=== PATIENT | female | born 1970 | race Caucasian/White ===

== ENCOUNTER 2018-09-20 15:29 | Emergency (ER) | payer OTHER ==
[~2018-09-20] VITALS: Ht 154.9 cm; Wt 63.5 kg
--- OUTSIDE RECORDS SUMMARY | ~2018-09-20 | XMS | Clinical Summary ---
Demographics + + + | Address | [address] | | | [place] [address] | + + + | Home Phone | | + + + | Preferred Language | Unknown | + + + | Marital Status | Single | + + + | Sabianism Affiliation | Unknown | + + + | Race | Unknown | + + + | Ethnic Group | Unknown | + + + Author + + + | Author | [facility] | + + + | Organization | [facility] | + + + | Address | Unknown | + + + | Phone | Unavailable | + + + Support + + +---------+ + | Name | Relationship | Address | Phone | + + +---------+ + | Wily Cardoza | ECON | Unknown | | + + +---------+ + | Contact,No | ECON | Unknown | | + + +---------+ + Care Team Providers + +------+ + | Care Coal Loader Name | Role | Phone | + +------+ + | Vangie Cabral MD | PP | | + +------+ + Allergies No Known Allergies Current Medications + + +-------+---------+------+------+-------+ | Prescription | Sig. | Disp. | Refills | Star | End | Statu | | | | | | t | Date | s | | | | | | Date | | | + + +-------+---------+------+------+-------+ | | | | 0 | 12/0 | | Activ | | HYDROcodone-acetamin | | | | 7/20 | | e | | ophen (NORCO) 5-325 | | | | 18 | | | | MG per tablet | | | | | | | + + +-------+---------+------+------+-------+ | LYRICA 75 MG | | | 0 | 12/1 | | Activ | | capsule | | | | 3/20 | | e | | | | | | 18 | | | + + +-------+---------+------+------+-------+ | buPROPion | Take 200 mg by mouth | | | | | Activ | | (WELLBUTRIN SR) 200 | 2 (two) times | | | | | e | | MG 12 hr tablet | daily. | | | | | | + + +-------+---------+------+------+-------+ | venlafaxine | Take 75 mg by mouth | | | | | Activ | | (EFFEXOR) 75 MG | 3 (three) times | | | | | e | | tablet | daily. | | | | | | + + +-------+---------+------+------+-------+ | traZODone | Take 100 mg by mouth | | | | | Activ | | (DESYREL) 100 MG | nightly. | | | | | e | | tablet | | | | | | | + + +-------+---------+------+------+-------+ | ARIPiprazole | Take 2 mg by mouth | | | | | Activ | | (ABILIFY) 2 MG | daily. | | | | | e | | tablet | | | | | | | + + +-------+---------+------+------+-------+ | metroNIDAZOLE | | | | 01/2 | | Activ | | (FLAGYL) 500 MG | | | | 4/20 | | e | | tablet | | | | 19 | | | + + +-------+---------+------+------+-------+ Active Problems No known active problems Encounters +--------+ + + + + | Date | Type | Specialty | Care Team | Description | +--------+ + + + + | 09/06/ | Telephone | | Annabelle Staley MA | | | 2018 | | | | | +--------+ + + + + | 08/12/ | Telephone | | Gerardo Gallegos, | Follow-up | | 2018 | | | MD | (Reschedule 08/15/18 | | | | | | ) | +--------+ + + + + | 07/09/ | Telephone | | Gerardo Gallegos, | Referral | 2018 | | | MD | | +--------+ + + + + | 07/02/ | Documentati | | Gerardo Gallegos, | | | 2018 | on Only | | MD | | +--------+ + + + + from Last 3 Months Family History + + +------+ + | Medical History | Relation | Name | Comments | + + +------+ + | COPD | Mother | | | + + +------+ + + +------+--------+ + | Relation | Name | Status | Comments | + +------+--------+ + | Father | | Alive | | + +------+--------+ + | Mother | | Alive | | + +------+--------+ + Social History + +-------+ +--------+------+ | Tobacco Use | Types | Packs/Day | Years | Date | | | | | Used | | + +-------+ +--------+------+ | Never Smoker | | | | | + +-------+ +--------+------+ + +---+---+---+ | Smokeless Tobacco: | | | | | Never Used | | | | + +---+---+---+ + + +---------+ + | Alcohol Use | Drinks/We | oz/Week | Comments | | | ek | | | + + +---------+ + | Yes | | | | + + +---------+ + + + + | Sex Assigned at | Date Recorded | | | | + + + | Not on file | | + + + Last Filed Vital Signs + + + + | Vital Sign | Reading | Time Taken | + + + + | Blood Pressure | 111/65 | 05/23/2018 1:00 PM PST | + + + + | Pulse | 78 | 05/23/2018 1:00 PM PST | + + + + | Temperature | - | - | + + + + | Respiratory Rate | - | - | + + + + | Oxygen Saturation | - | - | + + + + | Inhaled Oxygen | - | - | | Concentration | | | + + + + | Weight | 62.1 kg (137 lb) | 2018 2:44 PM PST | + + + + | Height | 154.9 cm (5' 1") | 2018 2:44 PM PST | + + + + | Body Mass Index | 25.89 | 2018 2:44 PM PST | + + + + Plan of Treatment + + + + + | Health Maintenance | Due Date | Last Done | Comments | + + + + + | Vaccine: | | | | | Dtap/Tdap/Td (1 - | 1 | | | | Tdap) | | | | + + + + + | Cervical Cancer | | | | | Screening (Pap) | 2 | | | + + + + + | Vaccine: Influenza | | | | | (Season Ended) | 9 | | | + + + + + Results Not on filefrom Last 3 Months Insurance + +--------+ +------+-------+ + | Payer | Benefi | Subscriber | Type | Phone | Address | | | t Plan | ID | | | | | | / | | | | | | | Group | | | | | + +--------+ +------+-------+ + | MEDICAID | [employer] | [id number] | | | [address] | | | N | | | | [place] | | | [place] | | | | [address] | | | 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
--- OUTSIDE RECORDS SUMMARY | ~2018-09-20 | XMS | Encounter Summary ---
Demographics + + + | Address | [address] | | | [place] [address] | + + + | Home Phone | | + + + | Preferred Language | Unknown | + + + | Marital Status | Single | + + + | Sikh Affiliation | Unknown | + + + | Race | Unknown | + + + | Ethnic Group | Unknown | + + + Author + + + | Author | [facility] [employer] [employer] [facility] | + + + | Organization | [facility] [facility] | + + + | Address [...] Team Providers + +------+ + | Care Production Dispatcher Name | Role | Phone | + +------+ + | Vangie Cabral MD | PCP | | + +------+ + Encounter Details +--------+ + + + + | Date | Type | Department | Care Team | Description | +--------+ + + + + | 09/06/ | Telephone | [facility] | Annabelle Staley MA | | | 2019 | | [facility] | | | | | | [address] | | | | | | [place] | | | | | | [address] | | | | | | [phone] | | | +--------+ + + + + Social History + +-------+ +--------+------+ | [...] on file | | + + + as of this encounter Plan of Treatment Not on fileas of this encounter Visit Diagnoses Not on filein this encounter"
--- OUTSIDE RECORDS SUMMARY | ~2018-09-20 | XMS | Encounter Summary ---
Demographics + + + | Address | [address] | | | [place] [address] | + + + | Home Phone | | + + + | Preferred Language | Unknown | + + + | Marital Status | Single | + + + | Jewish Affiliation | Unknown | + + + | Race | Unknown | + + + | Ethnic Group | Unknown | + + + Author + + + | Author | [facility] [facility] | + + + | Organization | [facility] | + + + | Address [...] Team Providers + +------+ + | Care Burr Bench Operator Name | Role | Phone | + +------+ + | Vangie Cabral MD | PCP | | + +------+ + Reason for Visit + + + | Reason | Comments | + + + | Referral | | + + + Encounter Details +--------+ + + + + | Date | Type | Department | Care Team | Description | +--------+ + + + + | 07/09/ | Telephone | Lane | Gerardo Gallegos, | Referral | | 2019 | | [facility] | [address] | | | | | [address] | [place], [place] | | | | | [place], [place] | [address] | | | | | [address] | | | | | | [phone] | | | +--------+ + + + [...]
--- OUTSIDE RECORDS SUMMARY | ~2018-09-20 | XMS | Encounter Summary ---
Demographics + + + | Address | [address] | | | [place] [address] | + + + | Home Phone | | + + + | Preferred Language | Unknown | + + + | Marital Status | Single | + + + | Restorationism Affiliation | Unknown | + + + | Race | Unknown | + + + | Ethnic Group | Unknown | + + + Author + + + | Author | [facility] [employer] [facility] | + + + | Organization | [facility] | + + + | Address [...] Team Providers + +------+ + | Care Metaphysician Name | Role | Phone | + +------+ + | Vangei Cabral MD | PCP | | + +------+ + Encounter Details +--------+ + + + + | Date | Type | Department | Care Team | Description | +--------+ + + + + | 09/06/ | Telephone | [facility] | Annabelle Staley MA | | | 2019 | | [facility] | | | | | | [address] | | | | | | [place] | | | | | | [address] | | | | | | [phone] | | | +--------+ + + + [...]
--- OUTSIDE RECORDS SUMMARY | ~2018-09-20 | XMS | Encounter Summary ---
Demographics + + + | Address | [address] | | | [place] [address] | + + + | Home Phone | | + + + | Preferred Language | Unknown | + + + | Marital Status | Single | + + + | Advent Affiliation | Unknown | + + + | Race | Unknown | + + + | Ethnic Group | Unknown | + + + Author + + + | Author | [facility] [employer] [facility] | + + + | Organization | [facility] | + + + | Address [...] Team Providers + +------+ + | Care Tester Armature Or Fields Name | Role | Phone | + +------+ + | Vangie Cabral MD | PCP | | + +------+ + Reason for Visit + + + | Reason | Comments | + + + | Follow-up | Reschedule 08/15/18 | + + + Encounter Details +--------+ + + + + | Date | Type | Department | Care Team | Description | +--------+ + + + + | 08/12/ | Telephone | Lane | Gerardo Gallegos, | Follow-up | | 2019 | | [facility] | [address] | (Reschedule 08/15/18 | | | | [address] | Drive [place], [place] | ) | | | | [place], [place] | [address] | | | | | [address] | | | | | | [phone] | | | +--------+ + + + [...]
--- OUTSIDE RECORDS SUMMARY | ~2018-09-20 | XMS | Encounter Summary ---
Demographics + + + | Address | [address] | | | [place] [address] | + + + | Home Phone | | + + + | Preferred Language | Unknown | + + + | Marital Status | Single | + + + | Presybeterian Affiliation | Unknown | + + + | Race | Unknown | + + + | Ethnic Group | Unknown | + + + Author + + + | Author | [facility] [employer] [facility] | + + + | Organization | [facility] [facility] | + + + | Address [...] Team Providers + +------+ + | Care Stereoptic Projection Topographer Name | Role | Phone | + +------+ + | Vangie Cabral MD | PCP | | + +------+ + Encounter Details +--------+ + + + + | Date | Type | Department | Care Team | Description | +--------+ + + + + | 07/02/ | Documentati | [facility] | Gerardo Gallegos, | | | 2019 | on Only | [facility] | MD Eleni Crane | | | | | [address] | [place] | | | | | [place] | [address] | | | | | [address] | | | | | | [phone] | | | +--------+ + + + [...]
--- OUTSIDE RECORDS SUMMARY | ~2018-09-20 | XMS | Encounter Summary ---
Demographics + + + | Address | [address] | | | [place] [address] | + + + | Home Phone [...] + + + | Author | [facility] [employer] [facility] | + + + | Organization | [facility] [employer] [facility] | + + + | Address [...] Team Providers + +------+ + | Care Salesperson Jewelry Name | Role | Phone | + [...] | | [address] | Drive [place], [place] | ) | | | | [place], [place] | [address] | | | | | [address] | | | | | | [phone] | | | +--------+ + + + [...]
--- OUTSIDE RECORDS SUMMARY | ~2018-09-20 | XMS | Clinical Summary ---
Demographics + + + | Address | [address] | | | [place] [address] | + + + | Home Phone | | + + + | Preferred Language | Unknown | + + + | Marital Status | Single | + + + | Catholic Affiliation | Unknown | + + + | Race | Unknown | + + + | Ethnic Group | Unknown | + + + Author + + + | Author | [facility] [employer] [facility] | + + + | Organization | [facility] [employer] [facility] | + + + | Address [...] Team Providers + +------+ + | Care Practice Billing Associate Name | Role | Phone | + [...] | 07/02/ | Documentati | | Gerardo Gallegso, | | | 2018 | on Only [...] +------+-------+ + | MEDICAID | [employer] | [id number] | | | [address] | | | [place] | | | | [place] | | | [place] | | | | [address] | | | 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
--- OUTSIDE RECORDS SUMMARY | ~2018-09-20 | XMS | Encounter Summary ---
Demographics + + + | Address | [address] | | | [place] [address] | + + + | Home Phone | | + + + | Preferred Language | Unknown | + + + | Marital Status | Single | + + + | Confucianism Affiliation | Unknown | + + + | Race | Unknown | + + + | Ethnic Group | Unknown | + + + Author + + + | Author | [facility] [employer] [facility] | + + + | Organization | [facility] | + + + | Address [...] Team Providers + +------+ + | Care Extruder Operator Helper Name | Role | Phone | + [...] [address] | [place] | | | | | [place] | [address] | | | | | [address] | | | | | | [phone] | | | +--------+ + + + [...]
--- OUTSIDE RECORDS SUMMARY | ~2018-09-20 | XMS | Encounter Summary ---
Demographics + + + | Address | [address] | | | [place] [address] | + + + | Home Phone | | + + + | Preferred Language | Unknown | + + + | Marital Status | Single | + + + | Pentecostalism Affiliation | Unknown | + + + | Race | Unknown | + + + | Ethnic Group | Unknown | + + + Author + + + | Author | [facility] [employer] [facility] | + + + | Organization | [facility] | + + + | Address [...] Team Providers + +------+ + | Care Journal Entry Audit Clerk Name | Role | Phone | + [...] | [address] | [place], [place] | | | | | [place], [place] | [address] | | | | | [address] | | | | | | [phone] | | | +--------+ + + + [...]
[~2018-09-20 15:29] MED LIST: FLONASE2 SPRAY NS; IBUPROFEN800 MG PO; LYRICA100 MG PO; NAPROSYN500 MG PO; ULTRAM50 MG PO; VICODIN 5-5001 EACH PO
--- OUTSIDE RECORDS SUMMARY | 2018-09-20 15:32 | XMS ---
PreManage Notification: ELIZABETH MENDEZ Security [employer] Sales Events No recent Security Events currently on file CRITERIA MET - [facility] CARE PROVIDERS KYLE MARTE Primary Care Current PHONE: Unknown [facility] Primary Care Current CARE PHONE: [phone] Jun has no Care Guidelines for this patient. [place]aja VISIT COUNT (12 MO.) 1 ZAHRA Stewart TOTAL 1 NOTE: Visits indicate total known visits. ED/UCC VISIT TRACKING (12 MO.) 09/20/2018 15:[address] [facility] [place] TYPE: Emergency COMPLAINT: - LEFT SIDE FLANK INPATIENT VISIT TRACKING (12 MO.) No inpatient visits to display in this time frame [email or web address]
[2018-09-20] MEDS ORDERED: BUPROPION XL300 MG PO (17:19)
[2018-09-20] MEDS ORDERED: FAMCICLOVIR500 MG PO (19:40)
== END 2018-09-20 19:54 | disposition home or self-care (01) ==
LOC: ED 15:29
DX: B02.9 Zoster without complications (principal); Z90.49 Acquired absence of other specified parts of digestive tract; Z79.899 Other long term (current) drug therapy
CPT/HCPCS: 76775; 81001; 99284-25

== ENCOUNTER 2025-01-30 05:47 | Day surgery (SDC) | payer OTHER ==
[2024-11-18 09:00] VITALS: BP 102/72
[2025-01-26 11:54] VITALS: BP 102/72
[~2025-01-30] VITALS: Ht 154.9 cm; Wt 58.0 kg
[~2025-01-30 05:47] MED LIST changes: +ACETAMINOPHEN325 M1 PO; +BUPROPION XL300 MG PO; +CYCLOBENZAPRINE10 MG PO; +FAMCICLOVIR500 MG PO; +GABAPENTIN800 MG PO; +IBLOOD GLUCOSE TEST STRIP 1 EA TEST VI PRN; +LACTATED RINGER'S 1,000 ML IV SCH; +LIDOCAINE HCL 1% 5 ML SDV INJ ONE; +SENNA LAX8.6 MG PO
[2025-01-30 06:04] VITALS: BP 104/71
[2025-01-30] MEDS ORDERED: HYDROCODON-ACE1 EA10 PO (06:08)
[2025-01-30] MEDS ORDERED: LIDOCAINE HCL 1% 5 ML SDV INJ ONE (07:00)
[2025-01-30] MEDS ORDERED: IBLOOD GLUCOSE TEST STRIP 1 EA TEST VI PRN (07:00)
[2025-01-30] MEDS ORDERED: LIDOCAINE HCL 2% 5 ML SDV ONE (07:10)
--- NOTE | 2025-01-30 09:03 | NUR ---
01/30/25 09 Abbi Harrison PATIENT WAKES SUDDENLY. SHE DENIES PAIN AND NAUSEA. HER QUESTIONS ARE ANSWERED.
[2025-01-30 09:15] VITALS: BP 105/70
--- NOTE | 2025-01-31 18:03 | OR ---
[facility] [address] [facility] [place], [place] [address] Signed DATE OF OPERATION: 01/30/2025 SURGEON: Raoul Gagnon DO PREOPERATIVE DIAGNOSIS: Colon cancer screening. POSTOPERATIVE DIAGNOSIS: Colon cancer screening with colon polyps at 45 cm, 65 cm and 80 cm. PROCEDURE PERFORMED: Colonoscopy with colon polyp biopsy at 45 cm, 65 cm, and 80 cm. ANESTHESIA: IV sedation. ESTIMATED BLOOD LOSS: None. DRAINS: None. COMPLICATIONS: None. DESCRIPTION OF PROCEDURE: The patient was brought to the GI lab and placed in the supine position. After induction of IV sedation, the patient was placed in left lateral position, padded to the satisfaction of anesthesia. The Olympus video colonoscope was then introduced into the rectum and while insufflating and under direct visualization, the scope was pushed through the rectosigmoid, sigmoid colon, descending colon, transverse colon, ascending colon into the cecum. The colon was insufflated and exploration of mucosal surfaces was carried out. Cecum and ascending colon had no lesions or ulcerations noted. No intrinsic or extrinsic masses were appreciated. Scope was then brought back into the transverse colon, passed the hepatic flexure. No intrinsic or extrinsic masses, lesions or ulceration noted. The scope was brought back from the splenic flexure and at approximately 80 cm, a flat broad-based polyp was identified. Multiple biopsies were taken with the broad-based polyp with the cold biopsy forceps and passed off the field for pathologic review. The scope was then brought back into the lower descending colon and at approximately 65 cm, another flat broad-based polyp was identified. Cold biopsy Electronically Signed By: RAOUL GAGNON DO 01/31/25 1803 PATIENT NAME: ELIZABETH MENDEZ OPERATIVE REPORT DATE OF : 72 REPORT #: [id number] PHYSICIAN: RAOUL GAGNON DO PCP: NARCISA CARTRE MD REPORT IS CONFIDENTIAL AND NOT TO BE RELEASED WITHOUT AUTHORIZATION [facility] [address] [place], [place] [address] Signed forceps was utilized to take multiple biopsies, passed off the field for pathologic review. The scope was then brought back into the sigmoid colon and at approximately 45 cm, a flat broad-based polyp was identified. Utilizing cold biopsy forceps, multiple biopsies were taken and passed off the field for pathologic review. Satisfactory hemostasis was maintained in all 3 sites of the biopsies. The remainder of sigmoid colon had no extrinsic or extrinsic masses. The scope was then brought back to the rectosigmoid, essentially unremarkable. Scope was withdrawn. The patient tolerated the procedure well, went to recovery room in satisfactory condition. DO KEV León/MODL /[id number] Copies: ~ Electronically Signed By: RAOUL GAGNON DO 01/31/25 1803 PATIENT NAME: ELIZABETH MENDEZ OPERATIVE REPORT DATE OF : 72 REPORT #: [id number] PHYSICIAN: RAOUL GAGNON DO PCP: NARCISA CARTER MD REPORT IS CONFIDENTIAL AND NOT TO BE RELEASED WITHOUT AUTHORIZATION
--- NOTE | 2025-02-05 14:43 | PATH ---
[facility] [address] [place], [place] [address] Signed SPECIMEN(S): A POLYP AT 80 CM SPECIMEN(S): B POLYP AT 65 CM SPECIMEN(S): C POLYP AT 45 CM SPECIMEN SOURCE: A. POLYP AT 80 CM B. POLYP AT 65 CM C. POLYP AT 45 CM CLINICAL HISTORY: Screening, family history of colon cancer. FINAL PATHOLOGIC DIAGNOSIS: A. Polyp at 80 cm, biopsy: - Tubular adenoma. - Negative for high-grade dysplasia or malignancy. B. Polyp at 65 cm, biopsy: - Tubular adenoma. - Negative for high-grade dysplasia or malignancy. C. Polyp at 45 cm, biopsy: - Minimal superficial hyperplastic change. DWS:smn MICROSCOPIC EXAMINATION: Histologic sections of all submitted blocks are examined by light microscopy. These findings, together with the gross examination, support the pathologic diagnosis. GROSS DESCRIPTION: A. The specimen, labeled and designated "[place], colon polyp at 80 cm," is received in formalin and consists of two shi soft tissue fragments, ranging from 0.2 cm. Entirely submitted in (A1). B. The specimen, labeled and designated "[place], colon polyp at 65 cm," is received in formalin and consists of one shi soft tissue fragment, 0.2 cm. Entirely submitted in (B1). C. The specimen, labeled and designated "[place], colon polyp at 45 cm," is received in formalin and consists of one shi soft tissue fragment, 0.2 cm. Entirely submitted in (C1). JS (under the direct supervision of a pathologist) The Gross Description was prepared using a voice recognition system. The report was reviewed for accuracy; however, sound-alike word errors, addition and/or PATIENT NAME: ELIZABETH MENDEZ PATHOLOGY DATE OF : 72 REPORT #: [id number] PHYSICIAN: [facility] PCP: NARCISA CARTER MD REPORT IS CONFIDENTIAL AND NOT TO BE RELEASED WITHOUT AUTHORIZATION [facility] [address] [place], [place] [address] Signed deletions may occur. If there is any question about this report, please contact Client Services. PERFORMING LABORATORY: Technical component was performed by [facility], [address] [place] [id number] (CLIA# [id number]). [facility], [address] [place] [id number] (CLIA#: [id number]). Diagnostician: Eleazar Perez MD Pathologist Electronically Signed 02/05/2025 Copies: ~ PATIENT NAME: ELIZABETH MENDEZ PATHOLOGY DATE OF : 72 REPORT #: [id number] PHYSICIAN: [facility] PCP: NARCISA CARTER MD REPORT IS CONFIDENTIAL AND NOT TO BE RELEASED WITHOUT AUTHORIZATION
== END 2025-01-30 09:28 | disposition home or self-care (01) ==
LOC: DS 05:47
PROVIDERS: ATTEND Surgery
PROC: 0DBL8ZX Excision of Transverse Colon, Via Natural or Artificial Opening Endoscopic, Diagnostic (ICD-10-PCS; 2025-01-30)
PROC: 0DBN8ZX Excision of Sigmoid Colon, Via Natural or Artificial Opening Endoscopic, Diagnostic (ICD-10-PCS; 2025-01-30)
PROC: 0DBM8ZX Excision of Descending Colon, Via Natural or Artificial Opening Endoscopic, Diagnostic (ICD-10-PCS; principal; 2025-01-30 07:30)
DX: Z12.11 Encounter for screening for malignant neoplasm of colon (principal); D12.4 Benign neoplasm of descending colon; D12.3 Benign neoplasm of transverse colon; Z80.0 Family history of malignant neoplasm of digestive organs; Z79.899 Other long term (current) drug therapy
CPT/HCPCS: 00812; 88305; J2003; J2704; J7121